=== PATIENT | female | born 1990 | race Caucasian/White ===

== ENCOUNTER 2016-07-19 10:50 | Emergency (ER) | payer MEDICAID, OTHER ==
[~2016-07-19 10:50] MED LIST: Sodium Chloride 0.9% 1,000 ML BAG ONE
[2016-07-19 11:56] LABS: #Eosinphils 0.1 thou/uL (0.0-0.7); #Lymphocytes 1.9 thou/uL (1.20-3.40); #Monocytes 0.5 thou/uL (0.11-0.59); #Neutrophils 10.2 thou/uL (1.40-6.50); %Basophils 0.3 % (0.0-1.0); %Eosinophils 0.9 % (0.0-10.0); %Monocytes 3.8 % (0.0-10.0); %Neutrophils 80.1 % (42.0-75.0); Hemoglobin 12.4 g/dL (12.0-16.0); Mean Corpuscular HGB CONC 33.9 g/dL (32.0-36.0); Mean Corpuscular Hemoglobin 30.7 pg (27.0-31.0); Mean Corpuscular Volume 90.8 fl (81.0-99.0); Mean Platelet Volume 8.2 fL (7.4-10.4); Platelet Count 199 thou/uL (130-400); RBC Distribution Width 12.4 % (11.5-14.5); Red Blood Cell (RBC) Count 4.03 mill/uL (4.20-5.40); White Blood Cell (WBC) Count 12.7 thou/uL (4.8-10.8)
[2016-07-19 12:11] LABS: Bilirubin Negative (Negative); Blood, Urine Trace (Negative); Glucose, Urine (Dipstick) Negative (Negative); Leukocyte Negative (Negative); Nitrite Positive (Negative); Protein, Urine (Dipstick) Negative (Neg-Trace); Urobilinogen 0.2 mg/dL (0.2-1.0)
[2016-07-19 12:12] LABS: Clarity Hazy (Clear)
[2016-07-19 12:13] LABS: Bacteria/HPF 4+ HPF (None Seen); RBC/HPF 0-3 HPF (0-3); Squamous Epithelial 0-3 HPF (0-3)
[2016-07-19 12:15] LABS: ALT (SGPT) 9 U/L (0-55); AST (SGOT) 10 U/L (5-34); Albumin 3.7 g/dL (3.5-5.0); Alkaline Phosphatase 90 U/L (40-150); Anion Gap 14 mmol/L (10-20); BUN (Urea Nitrogen) 7 mg/dL (7.0-18.7); Bilirubin, Total Less than 0.3 mg/dL (0.2-1.2); Calc. Creatinine Clearance 0 mL/min (70-130); Calcium 8.6 mg/dL (7.8-10.44); Carbon Dioxide 21 mmol/L (22-29); Chloride 107 mmol/L (98-107); Estimated GFR-MDRD Greater than 90; Glucose 64 mg/dL (70-105); Potassium 3.9 mmol/L (3.5-5.1); Protein, Total 6.7 g/dL (6.0-8.3); Sodium 138 mmol/L (136-145)
== END 2016-07-19 12:35 | disposition home or self-care (01) ==
LOC: MADERS 10:50
DX: O99.89 Other specified diseases and conditions complicating pregnancy, childbirth and the puerperium (principal); R42 Dizziness and giddiness; O99.332 Smoking (tobacco) complicating pregnancy, second trimester; Z3A.24 24 weeks gestation of pregnancy
CPT/HCPCS: 80053; 81003; 81015; 85025; 87086; 96360; J7050

== ENCOUNTER 2016-11-15 14:44 | Emergency (ER) | payer OTHER ==
[2016-11-15 15:31] LABS: Clarity Clear (Clear); Leukocyte Trace (Negative); Nitrite Negative (Negative); Specific Gravity, Urine 1.015 (1.005-1.030); pH, Urine 5.5 (5.0-9.0)
[2016-11-15 15:32] LABS: Bilirubin Negative (Negative); Blood, Urine Large (Negative); Glucose, Urine (Dipstick) Negative (Negative); Protein, Urine (Dipstick) Negative (Neg-Trace); Urobilinogen 0.2 mg/dL (0.2-1.0); WBC/HPF 0-3 HPF (0-3)
[2016-11-15 15:33] LABS: Bacteria/HPF Rare-Few HPF (None Seen)
[2016-11-15] MEDS ORDERED: Sulfameth/Trimethoprim DS 800-160mg TAB ONE (15:34)
[2016-11-15] MEDS ORDERED: HYDROcodone/Acetaminophen 10/325 mg Tablet ONE (15:34)
== END 2016-11-15 15:50 | disposition home or self-care (01) ==
LOC: MADERS 14:44
DX: O86.89 Other specified puerperal infections (principal); N39.0 Urinary tract infection, site not specified; O86.13 Vaginitis following delivery; O99.335 Smoking (tobacco) complicating the puerperium; Z79.899 Other long term (current) drug therapy
CPT/HCPCS: 81003; 81015; 99284

== ENCOUNTER 2019-04-18 11:08 | Emergency (ER) | payer OTHER, SELFPAY ==
[2019-04-18 11:39] LABS: Bilirubin Negative (Negative); Blood, Urine Negative (Negative); Clarity Clear (Clear); Glucose, Urine (Dipstick) Negative (Negative); Leukocyte Negative (Negative); Nitrite Negative (Negative); Protein, Urine (Dipstick) Negative (Neg-Trace); Urobilinogen 0.2 mg/dL (Less than 2)
[2019-04-18] MEDS ORDERED: Ketorolac Tromethamine 60 MG/2 ML VIAL ONE (11:57)
[2019-04-20 00:15] LABS: Chlamydia by PCR Not Detected (NotDetected); GC by PCR Not Detected (NotDetected)
== END 2019-04-18 12:15 | disposition home or self-care (01) ==
LOC: MADERS 11:08
DX: N30.00 Acute cystitis without hematuria (principal); F41.9 Anxiety disorder, unspecified; F32.9 Major depressive disorder, single episode, unspecified; F17.210 Nicotine dependence, cigarettes, uncomplicated; Z79.899 Other long term (current) drug therapy
CPT/HCPCS: 81003; 87491; 87591; 96372; 99283; J1885

== ENCOUNTER 2020-02-22 15:43 | Emergency (ER) | payer SELFPAY ==
[2020-02-22] MEDS ORDERED: Iopamidol 370 76% 100 ML VIAL IV ONE (15:44)
--- NOTE | 2020-02-22 17:12 | CT ---
CT of thecervical spine: 02/22/2020 COMPARISON:None HISTORY:Neck pain, bilateral upper extremity numbness, pain for 11 days TECHNIQUE: Serial axial CT imaging at2.5 mm intervals from theskull base through lung apices without contrast. Coronal and sagittal reformatted imaging obtained Findings:Partially visualized paranasal sinuses and mastoid air cells well-aerated. The C1 ring is intact. The occipital condyles, dens, and C1-2 articulation demonstrate no acute findings. The atlantoaxial interspace and the cervicothoracic junction appear intact. No anterolisthesis or ret rolisthesis. No prevertebral soft tissue swelling. No acute fracture or evidence of dislocation is seen. The imaged lung apices appear unremarkable. Impression:No acute osseous abnormality.
[2020-02-22] MEDS ORDERED: Cyclobenzaprine 10 MG TAB ONE (17:21)
[2020-02-22] MEDS ORDERED: Morphine 4 MG/ML VIAL ONE (17:21)
--- NOTE | 2020-02-22 17:21 | CT ---
CT angiogram head CT angiogram neck 02/22/2020 COMPARISON: None HISTORY: Injury, trauma, pain, upper extremity numbness TECHNIQUE: Axial CT imaging at 1.25 mm intervals from the vertex through the lung apices with IV cont rast using CT angiogram protocol. Coronal and sagittal 3-D reformatted imaging obtained. FINDINGS: The imaged lung apices appear grossly unremarkable. There is mild mucosal thickening involving the alveolar recess of the left maxillary sinus. Visualize d paranasal sinuses and mastoid air cells otherwise unremarkable. The retroantral fat and parapharyngeal fat appears grossly unremarkable bilaterally. The parotid and the submandibular glands are unremarkable. The tonsillar pillars, epiglottis and preepiglottic fat, hyoid bone, thyroid cartilage, cricoid carti elvia, thyroid gland, and level of the glottis appear unremarkable. No enlarged lymph nodes are noted. There are bilateral level 2 lymph nodes that are at the upper limi ts of normal for size, likely within normal limits for a patient of this age. Similar level 1 lymph nodes are noted bilaterally. The origin of the innominate artery, the left common carotid artery, the right subclavian artery, and the right common carotid artery are limited in assessment secondary to motion artifact. The left vertebral artery emanates directly from the aortic arch. Bilateral vertebral arteries are patent. On the basis of NASCET criteria there is no hemodynamically significant stenosis involving the common carotid artery or the internal carotid artery on either side. The basilar artery appears patent with a hypoplastic or aplastic left P1 segment and a patent posteri or communicating artery on the left versus a origin of the left [employer]. No saccular aneurysm, high-grade stenosis, or vascular occlusion is seen involving the posterior circulation. The bifurcation of the internal carotid artery appears unremarkable bilaterally. The anterior cerebra l arteries appear patent. The MCA bifurcation and the distal MCA branches appear intact. No saccular aneurysm, high-grade stenosis, or vascular occlusion is evident involving the anterior circu lation. Follow-up brain MRI is suggested if symptoms persist. Review of the osseous structures demonstrates n o acute findings. IMPRESSION: No acute findings on CT angiography of the head and neck.
[2020-02-22] MEDS ORDERED: Ketorolac Tromethamine 30 MG/ML VIAL ONE (17:52)
== END 2020-02-22 18:11 | disposition home or self-care (01) ==
LOC: MADERS 15:43
DX: S13.9XXA Sprain of joints and ligaments of unspecified parts of neck, initial encounter (principal); F41.9 Anxiety disorder, unspecified; F32.9 Major depressive disorder, single episode, unspecified; F17.210 Nicotine dependence, cigarettes, uncomplicated; W22.8XXA Striking against or struck by other objects, initial encounter
CPT/HCPCS: 70496; 70498; 72125; 96374; 96375; J1885; J2270; Q9967

== ENCOUNTER 2020-04-24 13:02 | Emergency (ER) | payer SELFPAY ==
[2020-04-24] MEDS ORDERED: Loperamide HCl 2 MG CAP ONE (13:39)
[2020-04-24] MEDS ORDERED: Ondansetron PF 4 MG/2 ML Vial ONE (13:39)
[2020-04-24] MEDS ORDERED: Sodium Chloride 0.9% 1,000 ML ONE (13:39)
[2020-04-24 13:42] LABS: #Basophils 0.1 thou/uL (0.0-0.2); #Eosinphils 0.2 thou/uL (0.0-0.7); #Lymphocytes 0.7 thou/uL (1.20-3.40); #Monocytes 0.5 thou/uL (0.11-0.59); #Neutrophils 11.2 thou/uL (1.40-6.50); %Basophils 0.7 % (0.0-1.0); %Eosinophils 1.4 % (0.0-10.0); %Lymphocytes 5.3 % (21.0-51.0); %Monocytes 3.9 % (0.0-10.0); %Neutrophils 88.8 % (42.0-75.0); Hemoglobin 14.9 g/dL (12.0-16.0); Mean Corpuscular HGB CONC 31.5 g/dL (32.0-36.0); Mean Corpuscular Hemoglobin 26.4 pg (27.0-31.0); Mean Corpuscular Volume 83.9 fL (78.0-98.0); Mean Platelet Volume 7.9 fL (7.4-10.4); Platelet Count 233 thou/uL (130-400); RBC Distribution Width 13.7 % (11.5-14.5); Red Blood Cell (RBC) Count 5.66 mill/uL (4.20-5.40); White Blood Cell (WBC) Count 12.6 thou/uL (4.8-10.8)
[2020-04-24 13:50] LABS: Bilirubin Negative (Negative); Blood, Urine Large (Negative); Clarity Clear (Clear); Glucose, Urine (Dipstick) Negative (Negative); Ketone, Urine Negative (Negative); Leukocyte Negative (Negative); Nitrite Negative (Negative); Protein, Urine (Dipstick) Negative (Neg-Trace); Specific Gravity, Urine 1.025 (1.005-1.030); Urobilinogen 0.2 mg/dL (Less than 2); pH, Urine 5.5 (5.0-9.0)
[2020-04-24 13:53] LABS: Bacteria/HPF Rare-Few HPF (None Seen); Squamous Epithelial 0-3 HPF (0-3); WBC/HPF 0-3 HPF (0-3)
[2020-04-24 14:00] LABS: BHCG - Serum Negative (NEGATIVE); Pregs Control Background? CLEAR/WHITE (CLR/WHITE); Pregs Control Bar Appear? YES (CONTROL BAR)
[2020-04-24 14:02] LABS: ALT (SGPT) 13 U/L (8-55); AST (SGOT) 14 U/L (5-34); Albumin 4.4 g/dL (3.5-5.0); Alkaline Phosphatase 114 U/L (40-110); Anion Gap 15 mmol/L (10-20); BUN (Urea Nitrogen) 16 mg/dL (7.0-18.7); Bilirubin, Total 0.5 mg/dL (0.2-1.2); Calc. Creatinine Clearance 0 mL/min (70-130); Calcium 8.8 mg/dL (7.8-10.44); Carbon Dioxide 20 mmol/L (22-29); Chloride 108 mmol/L (98-107); Globulin 3.3 g/dL (2.4-3.5); Glucose 105 mg/dL (70-105); Lipase 16 U/L (8-78); Potassium 4.4 mmol/L (3.5-5.1); Protein, Total 7.7 g/dL (6.0-8.3); Sodium 139 mmol/L (136-145)
[2020-04-25 02:54] LABS: SARS-CoV-2 PCR by NAA Not Detected (NotDetected)
== END 2020-04-24 14:36 | disposition home or self-care (01) ==
LOC: MADERS 13:02
DX: R11.2 Nausea with vomiting, unspecified (principal); R19.7 Diarrhea, unspecified; Z20.822 Contact with and (suspected) exposure to COVID-19; F17.210 Nicotine dependence, cigarettes, uncomplicated; E66.9 Obesity, unspecified
CPT/HCPCS: 80053; 81003; 81015; 83690; 84703; 85025; 87635; 96374; J2405; J7050; U0003; U0005

== ENCOUNTER 2021-03-05 10:21 | Emergency (ER) | payer SELFPAY ==
[~2021-03-05 10:21] MED LIST changes: +Iopamidol 370 76% 100 ML VIAL ONE; -Sodium Chloride 0.9% 1,000 ML BAG ONE
[2021-03-05 14:54] LABS: Bilirubin Negative (Negative); Blood, Urine Large (Negative); Clarity Clear (Clear); Glucose, Urine (Dipstick) Negative (Negative); Ketone, Urine Negative (Negative); Leukocyte Negative (Negative); Nitrite Negative (Negative); Protein, Urine (Dipstick) Negative (Neg-Trace); Specific Gravity, Urine 1.025 (1.005-1.030); Urobilinogen 0.2 mg/dL (Less than 2)
[2021-03-05 14:57] LABS: #Basophils 0.1 thou/uL (0.0-0.2); #Eosinphils 1.1 thou/uL (0.0-0.7); #Lymphocytes 2.8 thou/uL (1.20-3.40); #Monocytes 0.5 thou/uL (0.11-0.59); #Neutrophils 3.8 thou/uL (1.40-6.50); %Eosinophils 13.9 % (0.0-10.0); %Lymphocytes 33.8 % (21.0-51.0); %Monocytes 5.4 % (0.0-10.0); %Neutrophils 45.9 % (42.0-75.0); Hemoglobin 13.9 g/dL (12.0-16.0); Mean Corpuscular HGB CONC 31.9 g/dL (32.0-36.0); Mean Corpuscular Hemoglobin 27.3 pg (27.0-31.0); Mean Corpuscular Volume 85.8 fL (78.0-98.0); Mean Platelet Volume 7.6 fL (7.4-10.4); Platelet Count 243 thou/uL (130-400); RBC Distribution Width 13.9 % (11.5-14.5); Red Blood Cell (RBC) Count 5.09 mill/uL (4.20-5.40); White Blood Cell (WBC) Count 8.3 thou/uL (4.8-10.8)
[2021-03-05 15:02] LABS: Squamous Epithelial 0-3 HPF (0-3); WBC/HPF 0-3 HPF (0-3)
[2021-03-05 15:03] LABS: Bacteria/HPF Rare-Few HPF (None Seen); Calcium Oxalate Crystals 2+ HPF (None Seen); Mucous/LPF 2+ LPF (<2+)
[2021-03-05 15:12] LABS: CK (CPK) 81 U/L (29-168); CRP (Inflammatory) Less than 0.50 mg/dL (= or < 0.5)
[2021-03-05 15:15] LABS: ALT (SGPT) 15 U/L (8-55); AST (SGOT) 17 U/L (5-34); Albumin 4.2 g/dL (3.5-5.0); Alkaline Phosphatase 94 U/L (40-110); Anion Gap 12 mmol/L (10-20); BUN (Urea Nitrogen) 12 mg/dL (7.0-18.7); Bilirubin, Total 0.3 mg/dL (0.2-1.2); Calc. Creatinine Clearance 0 mL/min (70-130); Calcium 8.7 mg/dL (7.8-10.44); Carbon Dioxide 27 mmol/L (22-29); Chloride 105 mmol/L (98-107); Globulin 2.9 g/dL (2.4-3.5); Glucose 78 mg/dL (70-105); Lipase 17 U/L (8-78); Potassium 3.8 mmol/L (3.5-5.1); Protein, Total 7.1 g/dL (6.0-8.3); Sodium 140 mmol/L (136-145)
[2021-03-05] MEDS ORDERED: Acetaminophen 500 MG TAB ONE (16:02)
== END 2021-03-05 16:19 | disposition home or self-care (01) ==
LOC: MADERS 10:21
DX: R10.11 Right upper quadrant pain (principal); K21.9 Gastro-esophageal reflux disease without esophagitis; F17.210 Nicotine dependence, cigarettes, uncomplicated; E66.9 Obesity, unspecified; Z68.45 Body mass index [BMI] 70 or greater, adult; Z79.899 Other long term (current) drug therapy
CPT/HCPCS: 74177; 80053; 81003; 81015; 82150; 82550; 83690; 85025; 86140; Q9967

== ENCOUNTER 2022-08-05 09:57 | Emergency (ER) | payer OTHER, SELFPAY ==
[2022-08-05 11:30] LABS: Pregnancy Test - Urine (BHCG) Negative (Negative); Pregu Control Background? CLEAR/WHITE (CLR/WHITE); Pregu Control Bar Appear? YES (CONTROL BAR); Specific Gravity 1.024 (1.002-1.036)
[2022-08-05 12:54] LABS: Bilirubin Negative (Negative); Blood, Urine Negative (Negative); Clarity Clear (Clear); Glucose, Urine (Dipstick) Negative (Negative); Ketone, Urine Negative (Negative); Leukocyte Negative (Negative); Nitrite Negative (Negative); Protein, Urine (Dipstick) Negative (Neg-Trace); Specific Gravity, Urine 1.025 (1.005-1.030); Urobilinogen 0.2 mg/dL (Less than 2); pH, Urine 6.5 (5.0-9.0)
== END 2022-08-05 13:08 | disposition home or self-care (01) ==
LOC: MADERS 09:57
DX: S06.0X0A Concussion without loss of consciousness, initial encounter (principal); F17.210 Nicotine dependence, cigarettes, uncomplicated; W01.0XXA Fall on same level from slipping, tripping and stumbling without subsequent striking against object, initial encounter
CPT/HCPCS: 70450; 81003; 81025; 87086